=== PATIENT | male | born 1945 | race Caucasian/White ===

== ENCOUNTER → 2016-12-06 | Outpatient (CLI) | payer MEDICARE ==
[2016-12-06 13:02] LABS: BLOOD UREA NITROGEN 21 mg/dL (7-18)
[2016-12-06 13:06] LABS: ASPARTATE AMINO TRANSFERASE 23 U/L (15-37)
== END | disposition home or self-care (01) ==
LOC: CFH 10:57
PROVIDERS: ATTEND Internal Medicine Cardiovascular Disease
DX: Z00.01 Encounter for general adult medical examination with abnormal findings (principal); E78.5 Hyperlipidemia, unspecified
CPT/HCPCS: 36415; 80053; 80061

== ENCOUNTER → 2017-06-13 | Outpatient (CLI) | payer MEDICARE ==
[2017-06-13 12:18] LABS: ALANINE AMINOTRANSFERASE 60 U/L (12-78); ALBUMIN 3.8 g/dL (3.4-5.0); ANION GAP 7 mmol/L (5-15); CALCIUM 9.6 mg/dL (8.5-10.1); CHLORIDE 104 mmol/L (98-107); CHOLESTEROL, TOTAL 126 mg/dL (140-239); CREATININE 0.85 mg/dL (0.7-1.3); TRIGLYCERIDES 113 mg/dL (50-200); VLDL CHOLESTEROL 23 mg/dL (0-25)
[2017-06-13 12:20] LABS: ALKALINE PHOSPHATASE 62 U/L (45-117); CHOL/HDL RATIO 3.3; HDL CHOLESTEROL (DIRECT) 38 mg/dL (40-60); TOTAL PROTEIN 7.9 g/dL (6.4-8.2)
[2017-06-13 12:21] LABS: HDL CHOL % 30 % (26-37); LDL CHOLESTEROL,CALCULATED 65 mg/dL (54-169); LDL/HDL RATIO 1.7 (0.5-3.0)
== END | disposition home or self-care (01) ==
LOC: LAB 11:54
PROVIDERS: ATTEND Internal Medicine Cardiovascular Disease
DX: E78.4 Other hyperlipidemia (principal); R73.03 Prediabetes
CPT/HCPCS: 36415; 80053; 80061

== ENCOUNTER → 2017-12-23 | Outpatient (CLI) | payer MEDICARE | END | disposition home or self-care (01) | LOC: CFH 08:52 | PROVIDERS: ATTEND Internal Medicine Cardiovascular Disease | DX: I35.0 Nonrheumatic aortic (valve) stenosis (principal); I10 Essential (primary) hypertension; E78.5 Hyperlipidemia, unspecified; R01.1 Cardiac murmur, unspecified | CPT/HCPCS: 93306 ==

== ENCOUNTER → 2018-06-10 | Outpatient (CLI) | payer MEDICARE ==
[2018-06-10 09:39] LABS: ALANINE AMINOTRANSFERASE 52 U/L (12-78); ALBUMIN 4.4 g/dL (3.4-5.0); ANION GAP 10 mmol/L (5-15); CALCIUM 9.3 mg/dL (8.5-10.1); CHLORIDE 104 mmol/L (98-107); CHOLESTEROL, TOTAL 152 mg/dL (140-239); CREATININE 1.05 mg/dL (0.7-1.3)
[2018-06-10 09:42] LABS: ALKALINE PHOSPHATASE 61 U/L (45-117); BILIRUBIN,TOTAL 1.7 mg/dL (0.2-1.0); CHOL/HDL RATIO 3.2; HDL CHOL % 31 % (26-37); HDL CHOLESTEROL (DIRECT) 47 mg/dL (40-60); LDL CHOLESTEROL,CALCULATED 79 mg/dL (54-169); LDL/HDL RATIO 1.7 (0.5-3.0); TOTAL PROTEIN 8.6 g/dL (6.4-8.2); TRIGLYCERIDES 130 mg/dL (50-200); VLDL CHOLESTEROL 26 mg/dL (0-25)
== END | disposition home or self-care (01) ==
LOC: LAB 09:11
PROVIDERS: ATTEND Internal Medicine Cardiovascular Disease
DX: I10 Essential (primary) hypertension (principal)
CPT/HCPCS: 36415; 80053; 80061

== ENCOUNTER → 2018-12-12 | Outpatient (CLI) | payer MEDICARE ==
[2018-12-12 13:27] LABS: BASOPHILS # (AUTO) 0.06 x10^3/uL (0-0.1); BASOPHILS % (AUTO) 1 % (0-1); EOSINOPHILS # (AUTO) 0.12 x10^3/uL (0-0.4); EOSINOPHILS % (AUTO) 2 % (1-7); LYMPHOCYTES % (AUTO) 23 % (22-44); MD NO; MEAN CORPUSCULAR HEMOGLOBIN 33.8 pg (27.5-34.5); MEAN CORPUSCULAR HGB CONC 33.1 g/dL (33.2-36.2); MEAN CORPUSCULAR VOLUME 102.2 fL (81-97); MEAN PLATELET VOLUME 7.4 fL (7.4-10.4); MONOCYTES # (AUTO) 0.94 x10^3/uL (0.2-0.8); MONOCYTES % (AUTO) 15 % (2-9); NEUTROPHILS # (AUTO) 3.63 x10^3/uL (1.8-6.8); NEUTROPHILS % (AUTO) 59 % (42-75); PLATELET COUNT 248 x10^3/uL (130-400); RED BLOOD COUNT 4.08 x10^6/uL (4.38-5.82); RED CELL DISTRIBUTION WIDTH 14.1 % (9.4-14.8)
[2018-12-12 13:38] LABS: ALANINE AMINOTRANSFERASE 42 U/L (12-78); ALBUMIN 4.1 g/dL (3.4-5.0); ANION GAP 4 mmol/L (5-15); CALCIUM 8.9 mg/dL (8.5-10.1); CHLORIDE 111 mmol/L (98-107); CHOLESTEROL, TOTAL 118 mg/dL (140-239); CREATININE 1.03 mg/dL (0.7-1.3)
[2018-12-12 13:40] LABS: ALKALINE PHOSPHATASE 55 U/L (45-117); BILIRUBIN,TOTAL 1.5 mg/dL (0.2-1.0); CHOL/HDL RATIO 2.5; HDL CHOL % 40 % (26-37); HDL CHOLESTEROL (DIRECT) 47 mg/dL (40-60); LDL CHOLESTEROL,CALCULATED 58 mg/dL (54-169); LDL/HDL RATIO 1.2 (0.5-3.0); TOTAL PROTEIN 7.6 g/dL (6.4-8.2); TRIGLYCERIDES 64 mg/dL (50-200); VLDL CHOLESTEROL 13 mg/dL (0-25)
== END | disposition home or self-care (01) ==
LOC: LAB 13:08
PROVIDERS: ATTEND Internal Medicine Cardiovascular Disease
DX: I25.10 Atherosclerotic heart disease of native coronary artery without angina pectoris (principal); I10 Essential (primary) hypertension; I35.0 Nonrheumatic aortic (valve) stenosis; R73.03 Prediabetes
CPT/HCPCS: 36415; 80053; 80061; 85025

== ENCOUNTER 2018-12-24 10:47 | Outpatient (CLI) | payer MEDICARE ==
[2018-12-31] MEDS ORDERED: ATOR40TA PO (09:43)
[2018-12-31] MEDS ORDERED: ASPI-496 PO (09:43)
[2018-12-31] MEDS ORDERED: NIAC500T85 PO (09:43)
[2018-12-31] MEDS ORDERED: OLME1TAB22 PO (09:43)
[2018-12-31] MEDS ORDERED: SILD20TA2 PO (09:43)
[2018-12-31] MEDS ORDERED: SILD25TA PO (09:43)
[2019-01-01] MEDS ORDERED: PRAS10TA4 PO (08:54)
== END 2018-12-24 23:59 | disposition home or self-care (01) ==
LOC: CFH 10:47
PROVIDERS: ATTEND Internal Medicine Cardiovascular Disease
DX: I25.10 Atherosclerotic heart disease of native coronary artery without angina pectoris (principal)
CPT/HCPCS: 71046

== ENCOUNTER 2018-12-30 09:53 | Outpatient (CLI) | payer MEDICARE | END 2018-12-30 23:59 | disposition home or self-care (01) | LOC: RAD 09:53 | PROVIDERS: ATTEND Internal Medicine Cardiovascular Disease | DX: I26.99 Other pulmonary embolism without acute cor pulmonale (principal); R06.00 Dyspnea, unspecified | CPT/HCPCS: 71275; Q9967 ==

== ENCOUNTER 2018-12-31 09:06 | Observation (INO) | payer MEDICARE ==
[~2018-12-31] VITALS: Ht 175.3 cm; Wt 90.1 kg
[2019-01-01 06:58] VITALS: BP 123/81
== END 2019-01-01 11:15 | disposition home or self-care (01) ==
LOC: CACL 09:06 → 5SO 14:12 → CACL 23:00 → 5SO 23:04 → DCLOUNGE 01-01 11:00
PROVIDERS: ADMIT Internal Medicine Cardiovascular Disease; ATTEND Internal Medicine Cardiovascular Disease
DX: I25.10 Atherosclerotic heart disease of native coronary artery without angina pectoris (principal); I10 Essential (primary) hypertension; E78.5 Hyperlipidemia, unspecified; I35.0 Nonrheumatic aortic (valve) stenosis; R73.03 Prediabetes; Z79.82 Long term (current) use of aspirin; Z79.899 Other long term (current) drug therapy
CPT/HCPCS: 36415; 80048; 93005; 93306; 93455; 99156; 99157; C1725; C1760; C1769; C1874; C1887; C1894; C9600; C9601; C9604; G0378; J0583; J2250; J3010; J3490; Q9967; 93454

== ENCOUNTER 2019-06-22 09:14 | Outpatient (CLI) | payer MEDICARE ==
[~2019-06-22 09:14] MED LIST: ASPI-496 PO; ATOR40TA PO; NIAC500T85 PO; OLME1TAB22 PO; PRAS10TA4 PO; SILD20TA2 PO; SILD25TA PO
[2019-06-22 09:32] LABS: BASOPHILS # (AUTO) 0.04 x10^3/uL (0-0.1); BASOPHILS % (AUTO) 1 % (0-1); EOSINOPHILS % (AUTO) 1 % (1-7); LYMPHOCYTES # (AUTO) 1.42 x10^3/uL (1-3.4); LYMPHOCYTES % (AUTO) 19 % (22-44); MD NO; MEAN CORPUSCULAR HEMOGLOBIN 34.2 pg (27.5-34.5); MEAN CORPUSCULAR HGB CONC 33.5 g/dL (33.2-36.2); MONOCYTES # (AUTO) 0.97 x10^3/uL (0.2-0.8); MONOCYTES % (AUTO) 13 % (2-9); NEUTROPHILS # (AUTO) 4.78 x10^3/uL (1.8-6.8); NEUTROPHILS % (AUTO) 65 % (42-75); PLATELET COUNT 328 x10^3/uL (130-400); RED BLOOD COUNT 4.49 x10^6/uL (4.38-5.82); RED CELL DISTRIBUTION WIDTH 13.5 % (9.4-14.8)
[2019-06-22 09:48] LABS: ANION GAP 6 mmol/L (5-15); CALCIUM 9.2 mg/dL (8.5-10.1); CHLORIDE 105 mmol/L (98-107); TRIGLYCERIDES 134 mg/dL (50-200); VLDL CHOLESTEROL 27 mg/dL (0-25)
[2019-06-22 09:53] LABS: ALANINE AMINOTRANSFERASE 60 U/L (12-78); ALKALINE PHOSPHATASE 71 U/L (45-117); CHOLESTEROL, TOTAL 138 mg/dL (140-239); CREATININE 1.09 mg/dL (0.7-1.3); HDL CHOL % 33 % (26-37); HDL CHOLESTEROL (DIRECT) 46 mg/dL (40-60); LDL CHOLESTEROL,CALCULATED 65 mg/dL (54-169); LDL/HDL RATIO 1.4 (0.5-3.0); TOTAL PROTEIN 8.5 g/dL (6.4-8.2)
== END 2019-06-22 23:59 | disposition home or self-care (01) ==
LOC: LAB 09:14
PROVIDERS: ATTEND Internal Medicine Cardiovascular Disease
DX: I35.0 Nonrheumatic aortic (valve) stenosis (principal); I25.10 Atherosclerotic heart disease of native coronary artery without angina pectoris; I10 Essential (primary) hypertension; R06.00 Dyspnea, unspecified
CPT/HCPCS: 36415; 80053; 80061; 85025

== ENCOUNTER 2019-08-18 07:56 | Observation (INO) | payer MEDICARE ==
[~2019-08-18] VITALS: Ht 175.3 cm; Wt 86.0 kg
[2019-08-18] MEDS ORDERED: SODIUM CHLORIDE 0.9% 1,000 ML IV SCH ×2 (08:22→10:57)
[2019-08-18] MEDS ORDERED: BIVALIRUDIN 250 MG ONE ×2 (08:26→10:27)
[2019-08-18] MEDS ORDERED: VERAPAMIL 2.5 MG/ML, 2ML ONE (08:26)
[2019-08-18] MEDS ORDERED: FENTANYL PF 100 MCG/2ML ONE (08:26)
[2019-08-18] MEDS ORDERED: TICAGRELOR 90 MG TABLET ONE (08:26)
[2019-08-18] MEDS ORDERED: LIDOCAINE-MPF 1%, 5ML ONE (08:26)
[2019-08-18] MEDS ORDERED: MIDAZOLAM 1 MG/ML, 5ML ONE (08:26)
[2019-08-18] MEDS ORDERED: HEPARIN 1,000 UNITS/ML, 10ML ONE (08:26)
[2019-08-18 08:31] VITALS: BP 124/78
[2019-08-18] MEDS ORDERED: LIDOCAINE 2%, 20ML ONE (08:36)
[2019-08-18] MEDS ORDERED: PRASUGREL 10 MG TABLET ONE (08:54)
[2019-08-18] MEDS ORDERED: ASPIRIN 81 MG TABLET EC ONE (08:56)
[2019-08-18 08:58] LABS: BASOPHILS # (AUTO) 0.05 x10^3/uL (0-0.1); BASOPHILS % (AUTO) 1 % (0-1); EOSINOPHILS % (AUTO) 2 % (1-7); LYMPHOCYTES # (AUTO) 1.27 x10^3/uL (1-3.4); LYMPHOCYTES % (AUTO) 21 % (22-44); MD NO; MEAN CORPUSCULAR HEMOGLOBIN 34.5 pg (27.5-34.5); MEAN CORPUSCULAR VOLUME 101.4 fL (81-97); MEAN PLATELET VOLUME 7.4 fL (7.4-10.4); MONOCYTES # (AUTO) 0.88 x10^3/uL (0.2-0.8); MONOCYTES % (AUTO) 14 % (2-9); NEUTROPHILS # (AUTO) 3.91 x10^3/uL (1.8-6.8); NEUTROPHILS % (AUTO) 63 % (42-75); PLATELET COUNT 271 x10^3/uL (130-400); RED BLOOD COUNT 4.19 x10^6/uL (4.38-5.82); RED CELL DISTRIBUTION WIDTH 13.6 % (9.4-14.8)
[2019-08-18] MEDS ORDERED: ASPIRIN 81 MG TABLET CHEW PO SCH ×2 (09:00→09:30)
[2019-08-18 09:06] LABS: ALANINE AMINOTRANSFERASE 53 U/L (12-78); ALBUMIN 3.8 g/dL (3.4-5.0); ANION GAP 8 mmol/L (5-15); CALCIUM 8.9 mg/dL (8.5-10.1); CHLORIDE 106 mmol/L (98-107)
[2019-08-18 09:08] LABS: ALKALINE PHOSPHATASE 65 U/L (45-117); BILIRUBIN,TOTAL 1.3 mg/dL (0.2-1.0); TOTAL PROTEIN 7.8 g/dL (6.4-8.2)
[2019-08-18] MEDS ORDERED: PRASUGREL 10 MG TABLET PO ONE (10:00)
[2019-08-18] MEDS ORDERED: BIVALIRUDIN 250 MG in SODIUM CHLORIDE 0.9% 50 ML IV SCH (10:57)
[2019-08-18] MEDS ORDERED: SILDENAFIL CITRATE 25 MG PO PRN (11:00)
[2019-08-18 15:40] VITALS: BP 113/60
[2019-08-18 20:00] VITALS: BP 133/81
[2019-08-18] MEDS ORDERED: ATORVASTATIN 80 MG TABLET PO SCH (21:00)
[2019-08-19 02:02] VITALS: BP 145/66
[2019-08-19 05:40] LABS: ANION GAP 7 mmol/L (5-15); CALCIUM 8.8 mg/dL (8.5-10.1); CHLORIDE 109 mmol/L (98-107); CREATININE 0.88 mg/dL (0.7-1.3)
[2019-08-19 08:16] VITALS: BP 137/74
[2019-08-19 08:53] VITALS: BP 132/80
[2019-08-19] MEDS ORDERED: SILDENAFIL 20 MG TABLET PO SCH (09:00)
[2019-08-19] MEDS ORDERED: ASPIRIN 81 MG TABLET EC PO SCH (09:00)
[2019-08-19] MEDS ORDERED: PRASUGREL 10 MG TABLET PO SCH (09:00)
[2019-08-19] MEDS ORDERED: HYDROCHLOROTHIAZIDE 12.5 MG CAPSULE PO SCH (09:00)
[2019-08-19] MEDS ORDERED: VALSARTAN 160 MG TABLET PO SCH (09:00)
[2019-08-19] MEDS ORDERED: NIACIN 500 MG TABLET.ER PO SCH (09:00)
[2019-08-19] MEDS ORDERED: METO25TA91 PO (09:38)
[2019-08-19] MEDS ORDERED: METOPROLOL SUCCINATE 25 MG TAB.ER.24H PO SCH (20:00)
== END 2019-08-19 12:35 | disposition home or self-care (01) ==
LOC: CACL 07:56 → EDIP 10:57 → 5SO 12:24 → DCLOUNGE 08-19 12:25
PROVIDERS: ADMIT Internal Medicine Cardiovascular Disease; ATTEND Internal Medicine Cardiovascular Disease
DX: I25.119 Atherosclerotic heart disease of native coronary artery with unspecified angina pectoris (principal); I35.0 Nonrheumatic aortic (valve) stenosis; E78.5 Hyperlipidemia, unspecified; R73.03 Prediabetes; R06.00 Dyspnea, unspecified; I10 Essential (primary) hypertension; Z79.899 Other long term (current) drug therapy; Z79.82 Long term (current) use of aspirin
CPT/HCPCS: 36415; 80048; 80053; 85025; 92937; 93005; 93461; 99156; 99157; C1725; C1760; C1769; C1874; C1876; C1887; C1894; C9600; G0378; J0583; J1644; J2250; J3010; J3490; Q9967; 93460

== ENCOUNTER → 2020-06-28 | Outpatient (CLI) | payer MEDICARE ==
[~2020-06-28] MED LIST changes: +METO25TA91 PO
== END | disposition home or self-care (01) ==
LOC: CFH 10:49
PROVIDERS: ATTEND Internal Medicine Cardiovascular Disease
DX: I08.3 Combined rheumatic disorders of mitral, aortic and tricuspid valves (principal); I11.9 Hypertensive heart disease without heart failure; E78.5 Hyperlipidemia, unspecified; Z95.1 Presence of aortocoronary bypass graft
CPT/HCPCS: 93306

== ENCOUNTER → 2020-08-16 | Outpatient (CLI) | payer MEDICARE | END | disposition home or self-care (01) | LOC: CFH 10:48 | PROVIDERS: ATTEND Internal Medicine Cardiovascular Disease | DX: M85.80 Other specified disorders of bone density and structure, unspecified site (principal); M81.0 Age-related osteoporosis without current pathological fracture | CPT/HCPCS: 77080 ==